=== PATIENT | female | born 1950 | race African-American/Black ===

== ENCOUNTER 2017-04-15 12:13 | Emergency (ER) | payer MEDICARE, MEDICAID ==
[~2017-04-15] VITALS: Ht 188 cm; Wt 130.0 kg
[~2017-04-15 12:13] MED LIST: DULO30CA2 PO; DULO60CA44 PO; INSU100I7 SQ; METF10002 PO; SIMV40TA5 PO
[2017-04-15] MEDS ORDERED: NEBI5TAB3 PO (12:32)
[2017-04-15] MEDS ORDERED: INSU100V3 SUBCUT (12:32)
[2017-04-15] MEDS ORDERED: ASPI-1159 PO (12:32)
[2017-04-15] MEDS ORDERED: INSU100I28 SQ (12:32)
[2017-04-15] MEDS ORDERED: FURO20TA4 PO (12:32)
[2017-04-15] MEDS ORDERED: APIX2.5T PO (12:32)
[2017-04-15 15:40] LABS: BASOPHILS % 0.7 % (0.0-2.0); EOSINOPHILS % 2.5 % (0.0-5.0); HEMATOCRIT. 36.1 % (36.0-48.0); LYMPHOCYTES % 25.2 % (20.0-50.0); MEAN CORPUSCULAR HEMOGLOBIN 26.5 pg (28.0-32.0); MEAN CORPUSCULAR VOLUME 87.1 fL (81.0-99.0); MEAN PLATELET VOLUME 7.8 fl (7.4-10.4); MONOCYTES % 7.3 % (2.0-8.0); NEUTROPHILS % 64.3 % (40.0-76.0); PLATELET 198 x1000/uL (130-400); RED BLOOD CELL COUNT 4.15 mill/uL (4.2-5.4); RED CELL DISTRIBUTION WIDTH 18.7 % (11.6-14.6)
[2017-04-15 15:42] LABS: INR 1.1; PROTHROMBIN TIME 11.7 sec (9.4-11.6)
[2017-04-15 15:48] LABS: CARBON DIOXIDE 29 mEq/L (21-32); CHLORIDE 106 mEq/L (98-107)
[2017-04-15 15:53] LABS: TROPONIN I 0.06 ng/mL (0.00-0.04)
[2017-04-15 16:29] LABS: CLARITY URINE CLOUDY (CLEAR); COLOR URINE YELLOW (YELLOW); GLUCOSE URINE TRACE (NEGATIVE); KETONES URINE NEGATIVE (NEGATIVE); LEUKOCYTE ESTERASE URINE NEGATIVE (NEGATIVE); NITRITE URINE NEGATIVE (NEGATIVE); OCCULT BLOOD URINE TRACE (NEGATIVE); PH URINE 7.5 (4.5-8.0); PROTEIN URINE 3+ (NEGATIVE); SPECIFIC GRAVITY URINE 1.014 (1.005-1.030)
[2017-04-15] MEDS ORDERED: MORPHINE SULFATE 4 MG/ML CPJ (NOT FOR IM USE) IV STA (19:28)
[2017-04-15] MEDS ORDERED: MAGNESIUM/ALUMINUM HYDROXIDE/SIMETHICONE 30ML UDC PO STA (19:28)
[2017-04-15] MEDS ORDERED: FAMOTIDINE 20MG/2ML VIAL IV STA (19:28)
[2017-04-15] MEDS ORDERED: MORPHINE SULFATE 2 MG/ML CPJ (NOT FOR IM USE) IV SCH (20:15)
[2017-04-15 22:14] VITALS: BP 144/67
== END 2017-04-15 22:17 | disposition home or self-care (01) ==
LOC: ER 12:13
DX: R10.31 Right lower quadrant pain (principal); K59.00 Constipation, unspecified; I11.0 Hypertensive heart disease with heart failure; I50.9 Heart failure, unspecified; I48.92 Unspecified atrial flutter; I44.39 Other atrioventricular block; E11.9 Type 2 diabetes mellitus without complications; E78.5 Hyperlipidemia, unspecified; I25.10 Atherosclerotic heart disease of native coronary artery without angina pectoris; J44.9 Chronic obstructive pulmonary disease, unspecified; Z95.5 Presence of coronary angioplasty implant and graft; Z79.4 Long term (current) use of insulin; Z79.82 Long term (current) use of aspirin; Z88.0 Allergy status to penicillin; Z87.891 Personal history of nicotine dependence; F10.21 Alcohol dependence, in remission
CPT/HCPCS: 36415; 74176; 80053; 81001; 83690; 84484; 85025; 85610; 93005; 96374; 96375; 99285; J2270; J3490

== ENCOUNTER 2017-06-26 19:13 | Inpatient (IN) | payer MEDICARE, MEDICAID ==
[~2017-06-26] VITALS: Ht 188 cm; Wt 131.2 kg
[~2017-06-26 19:13] MED LIST changes: +APIX2.5T PO; +ASPI-1159 PO; +ETOMIDATE 2MG/ML 10ML VIAL IV ONE; +FURO20TA4 PO; +INSU100I28 SQ; +INSU100V3 SUBCUT; +METF-416 PO; -METF10002 PO; +NEBI5TAB3 PO; +SUCCINYLCHOLINE CHLORIDE 200MG/10ML IV ONE
[2017-06-26] MEDS ORDERED: IPRATROPIUM BROMIDE (0.02%) 0.5MG/2.5ML NEB HHN STA (19:16)
[2017-06-26] MEDS ORDERED: METHYLPREDNISOLONE SOD SUCC 125 MG/2 ML VIAL IV STA (19:16)
[2017-06-26] MEDS ORDERED: LEVOFLOXACIN 750MG PREMIX 150 ML IV STA (19:16)
[2017-06-26] MEDS ORDERED: ALBUTEROL (0.083%) 2.5MG/3ML NEB HHN STA (19:16)
[2017-06-26 19:55] LABS: HEMATOCRIT. 30.5 % (36.0-48.0); HEMOGLOBIN. 9.3 g/dL (12.0-16.0); INR 1.5; MEAN CORPUSCULAR HEMOGLOBIN 23.9 pg (28.0-32.0); MEAN CORPUSCULAR VOLUME 78.5 fL (81.0-99.0); MEAN PLATELET VOLUME 7.7 fl (7.4-10.4); PLATELET 388 x1000/uL (130-400); PROTHROMBIN TIME 15.6 sec (9.4-11.6); RED BLOOD CELL COUNT 3.88 mill/uL (4.2-5.4); RED CELL DISTRIBUTION WIDTH 20.2 % (11.6-14.6)
[2017-06-26 19:56] LABS: CHLORIDE 101 mEq/L (98-107)
[2017-06-26 20:47] LABS: ATYPICAL LYMPHOCYTES 2; NUCLEATED RED BLOOD CELLS 8 /100 WBC; PLATELET ESTIMATE NORMAL
[2017-06-26] MEDS ORDERED: DILTIAZEM HCL 125 MG in DEXT 5% WATER 100 ML IV ONE (21:00)
[2017-06-26] MEDS ORDERED: DILTIAZEM HCL 5MG/ML 5ML VIAL IV ONE (21:00)
[2017-06-26] MEDS ORDERED: FUROSEMIDE 100MG/10ML VIAL IVP ONE (21:45)
[2017-06-26] MEDS ORDERED: DILTIAZEM HCL 125 MG in DEXT 5% WATER 100 ML IV NR (21:45)
[2017-06-26] MEDS ORDERED: ONDANSETRON HCL 4MG/2ML INJ IV ONE (22:00)
[2017-06-26] MEDS ORDERED: MORPHINE SULFATE 4 MG/ML CPJ (NOT FOR IM USE) IV ONE (22:00)
[2017-06-26] MEDS ORDERED: INSULIN REGULAR (HUMULIN R) 300UNITS/3ML IV ONE (22:15)
[2017-06-26] MEDS ORDERED: ASPIRIN 325MG TABLET PO ONE (22:15)
[2017-06-26] MEDS ORDERED: SODIUM BICARBONATE 8.4% 1 MEQ/ML 50ML SYR IV ONE (22:15)
[2017-06-26] MEDS ORDERED: ALBUTEROL (0.083%) 2.5MG/3ML NEB HHN ONE (22:15)
[2017-06-26] MEDS ORDERED: CALCIUM CHLORIDE 1GM/10ML SYR IV ONE (22:15)
[2017-06-26] MEDS ORDERED: DEXTROSE 50% WATER 50ML SYRINGE IV ONE (22:15)
[2017-06-26] MEDS ORDERED: CLONIDINE 0.1MG TABLET PO PRN (22:30)
[2017-06-26] MEDS ORDERED: ONDANSETRON HCL 4MG/2ML INJ IV PRN (22:30)
[2017-06-26] MEDS ORDERED: LORAZEPAM 2MG/ML CPJ IV PRN (22:30)
[2017-06-26] MEDS ORDERED: IPRATROPIUM/ALBUTEROL 0.5-3(2.5)MG/3ML NEB INH PRN (22:30)
[2017-06-26] MEDS ORDERED: LEVOFLOXACIN 500MG PREMIX 100 ML IV SCH (22:30)
[2017-06-26] MEDS ORDERED: MAGNESIUM/ALUMINUM HYDROXIDE/SIMETHICONE 30ML UDC PO PRN (22:30)
[2017-06-26] MEDS ORDERED: ENOXAPARIN 40MG/0.4ML SYR SUBCUT SCH (22:30)
[2017-06-27] VITALS (41 sets, daily range): BP systolic 86–152; BP diastolic 45–85
[2017-06-27] MEDS ORDERED: DILTIAZEM HCL 125 MG in DEXT 5% WATER 100 ML IV PRN (05:00)
[2017-06-27] MEDS ORDERED: LIDOCAINE HCL/PF 1% 2ML VIAL ONE ×2 (05:00→15:00)
[2017-06-27] MEDS ORDERED: DEXTROSE 50% WATER 50ML SYRINGE IV PRN (06:00)
[2017-06-27] MEDS: INSULIN LISPRO 100 UNITS/ML SUBCUT SCH ×3 (06:46→16:39)
[2017-06-27] MEDS: METHYLPREDNISOLONE SOD SUCC 125 MG/2 ML VIAL IV SCH ×3 (06:49→21:39)
[2017-06-27] MEDS: BLOOD SUGAR DIAGNOSTIC STRIP TEST SCH ×4 (06:49→18:48)
[2017-06-27 07:18] LABS: BG BASE EXCESS -10.6 mmol/L (-2.0-2.0); BG CARBOXYHEMOGLOBIN 0.6 % (0.5-1.5); BG DEOXYHEMOGLOBIN 7.5 % (0.0-5.0); BG FRACTION INSPIRED OXYGEN 32; BG HCO3 ACT 16.9 mmol/L (22.0-26.0); BG METHEMOGLOBIN 0.4 % (0.0-1.5); BG OXYGEN SATURATION 92.4 % (92.0-98.5); BG OXYHEMOGLOBIN 91.5 % (94.0-97.0); BG PH 7.193 (7.350-7.450); BG PO2 76.4 mmHg (75.0-100.0); BG SAMPLE SITE RIGHT BRACHIAL; BG TOTAL HEMOGLOBIN 9.2 g/dL (12.0-18.0); BG VENT MODE NASAL CANNULA
[2017-06-27 07:24] LABS: CREATINE KINASE MB FRACTION 5.8 ng/mL (0.5-3.6)
[2017-06-27] MEDS ORDERED: SODIUM BICARBONATE 8.4% 1 MEQ/ML 50ML SYR IV NR (08:19)
[2017-06-27 08:32] LABS: HEMATOCRIT. 27.1 % (36.0-48.0); MEAN CORPUSCULAR HEMOGLOBIN 23.7 pg (28.0-32.0); MEAN CORPUSCULAR VOLUME 80.2 fL (81.0-99.0); MEAN PLATELET VOLUME 7.9 fl (7.4-10.4); PLATELET 321 x1000/uL (130-400); RED BLOOD CELL COUNT 3.38 mill/uL (4.2-5.4)
[2017-06-27 08:37] LABS: CHLORIDE 99 mEq/L (98-107)
[2017-06-27 08:45] LABS: PHOSPHORUS 6.8 mg/dL (2.5-4.9)
[2017-06-27] MEDS ORDERED: ENOXAPARIN 30MG/0.3ML SYR SUBCUT SCH (09:00)
[2017-06-27] MEDS ORDERED: IPRATROPIUM/ALBUTEROL 0.5-3(2.5)MG/3ML NEB HHN PRN (09:45)
[2017-06-27] MEDS ORDERED: SODIUM POLYSTYRENE SULFONATE 15 G/60 ML BOT PO NR (10:00)
[2017-06-27] MEDS: HYDROMORPHONE HCL/PF 2MG/ML CPJ IV PRN ×2 (10:21→14:26)
[2017-06-27] MEDS ORDERED: DILTIAZEM HCL 125 MG in DEXT 5% WATER 100 ML IV SCH (11:30)
[2017-06-27] MEDS: INSULIN GLARGINE UD 100 UNITS/ML SYR SUBCUT SCH ×2 (11:57→21:44)
[2017-06-27 12:08] LABS: NUCLEATED RED BLOOD CELLS 2 /100 WBC
[2017-06-27 12:09] LABS: PLATELET ESTIMATE NORMAL
[2017-06-27] MEDS: BUDESONIDE 0.5MG/2ML NEB HHN SCH ×2 (12:27→20:21)
[2017-06-27] MEDS: IPRATROPIUM/ALBUTEROL 0.5-3(2.5)MG/3ML NEB HHN SCH ×4 (12:27→23:56)
[2017-06-27 12:30] LABS: CLARITY URINE CLOUDY (CLEAR); COLOR URINE DARK YELLOW (YELLOW); KETONES URINE TRACE (NEGATIVE); LEUKOCYTE ESTERASE URINE NEGATIVE (NEGATIVE); NITRITE URINE NEGATIVE (NEGATIVE); OCCULT BLOOD URINE 3+ (NEGATIVE); PROTEIN URINE 3+ (NEGATIVE); SPECIFIC GRAVITY URINE 1.022 (1.005-1.030)
[2017-06-27 13:01] LABS: *AMPHETAMINES SCREEN URINE NEGATIVE (NEGATIVE); *BARBITURATES SCREEN URINE NEGATIVE (NEGATIVE); *BENZODIAZEPINES SCREEN URINE NEGATIVE (NEGATIVE); *COCAINE SCREEN URINE NEGATIVE (NEGATIVE); CANNABINOID URINE SCREEN NEGATIVE (NEGATIVE); METHADONE URINE SCREEN NEGATIVE (NEGATIVE); OPIATES URINE SCREEN PRESUMTIVE POSITIVE (NEGATIVE); PHENCYCLIDINE URINE SCREEN NEGATIVE (NEGATIVE)
[2017-06-27 16:12] LABS: BG BASE EXCESS -8.7 mmol/L (-2.0-2.0); BG BILEVEL POS AIRWAY PRESSURE 15/5; BG CARBOXYHEMOGLOBIN 0.2 % (0.5-1.5); BG DEOXYHEMOGLOBIN 4.4 % (0.0-5.0); BG HCO3 ACT 19.8 mmol/L (22.0-26.0); BG METHEMOGLOBIN 0.2 % (0.0-1.5); BG OXYGEN SATURATION 95.6 % (92.0-98.5); BG OXYHEMOGLOBIN 95.2 % (94.0-97.0); BG PCO2 55.4 mmHg (35.0-45.0); BG SAMPLE SITE RIGHT BRACHIAL; BG TOTAL HEMOGLOBIN 9.9 g/dL (12.0-18.0); BG VENT MODE MASK - BIPAP; BG VENT RATE 16 set
[2017-06-27] MEDS ORDERED: NOREPINEPHRINE 16 MG in DEXT 5% WATER 234 ML IV PRN (16:30)
[2017-06-27] MEDS ORDERED: NALOXONE HCL 0.4 MG/ML 1ML VIAL IV NR (17:00)
[2017-06-27 17:54] LABS: CREATINE KINASE MB FRACTION 8.3 ng/mL (0.5-3.6)
[2017-06-27] MEDS ORDERED: SODIUM CHLORIDE 0.9% 500 ML IV NR (18:45)
[2017-06-27] MEDS ORDERED: INSULIN REGULAR (HUMULIN R) 300UNITS/3ML SUBCUT NR (19:00)
[2017-06-27 19:26] LABS: BG BILEVEL POS AIRWAY PRESSURE 15/5; BG CARBOXYHEMOGLOBIN 0.2 % (0.5-1.5); BG DEOXYHEMOGLOBIN 1.5 % (0.0-5.0); BG FRACTION INSPIRED OXYGEN 50; BG HCO3 ACT 23.1 mmol/L (22.0-26.0); BG METHEMOGLOBIN 0.5 % (0.0-1.5); BG OXYGEN SATURATION 98.5 % (92.0-98.5); BG OXYHEMOGLOBIN 97.8 % (94.0-97.0); BG PCO2 59.8 mmHg (35.0-45.0); BG PH 7.205 (7.350-7.450); BG PO2 139.5 mmHg (75.0-100.0); BG SAMPLE SITE LEFT RADIAL; BG TOTAL HEMOGLOBIN 9.3 g/dL (12.0-18.0); BG VENT MODE MASK - BIPAP; BG VENT RATE 18 set
[2017-06-27] MEDS: LEVOFLOXACIN 250MG PREMIX 50 ML IV SCH (21:31)
[2017-06-27] MEDS: PROPOFOL 10MG/ML 100ML 100 ML IV PRN (22:17)
[2017-06-27 22:25] LABS: BG BASE EXCESS -3.9 mmol/L (-2.0-2.0); BG CARBOXYHEMOGLOBIN 0.1 % (0.5-1.5); BG DEOXYHEMOGLOBIN 0.8 % (0.0-5.0); BG FRACTION INSPIRED OXYGEN 60; BG HCO3 ACT 22.5 mmol/L (22.0-26.0); BG METHEMOGLOBIN 0.1 % (0.0-1.5); BG OXYGEN SATURATION 99.2 % (92.0-98.5); BG PCO2 47.2 mmHg (35.0-45.0); BG PH 7.296 (7.350-7.450); BG PO2 155.2 mmHg (75.0-100.0); BG SAMPLE SITE LEFT RADIAL; BG TIDAL VOLUME(mL) 550 mL; BG TOTAL HEMOGLOBIN 9.4 g/dL (12.0-18.0); BG VENT MODE VENT - A/C; BG VENT RATE 16 set
[2017-06-28] VITALS (72 sets, daily range): BP systolic 87–133; BP diastolic 49–96
[2017-06-28] MEDS: INSULIN LISPRO 100 UNITS/ML SUBCUT SCH ×4 (00:36→23:45)
[2017-06-28] MEDS: IPRATROPIUM/ALBUTEROL 0.5-3(2.5)MG/3ML NEB HHN SCH ×5 (02:58→19:59)
[2017-06-28] MEDS: PROPOFOL 10MG/ML 100ML 100 ML IV PRN ×4 (05:15→21:40)
[2017-06-28] MEDS: METHYLPREDNISOLONE SOD SUCC 125 MG/2 ML VIAL IV SCH (05:18)
[2017-06-28] MEDS: BLOOD SUGAR DIAGNOSTIC STRIP TEST SCH ×4 (05:31→23:49)
[2017-06-28 05:38] LABS: HEMATOCRIT. 28.5 % (36.0-48.0); HEMOGLOBIN. 8.4 g/dL (12.0-16.0); MEAN CORPUSCULAR VOLUME 78.1 fL (81.0-99.0); PLATELET 348 x1000/uL (130-400); RED BLOOD CELL COUNT 3.65 mill/uL (4.2-5.4); RED CELL DISTRIBUTION WIDTH 20.4 % (11.6-14.6)
[2017-06-28] MEDS: BUDESONIDE 0.5MG/2ML NEB HHN SCH ×2 (08:20→19:59)
[2017-06-28 08:44] LABS: BG BASE EXCESS -3.9 mmol/L (-2.0-2.0); BG CARBOXYHEMOGLOBIN 0.3 % (0.5-1.5); BG DEOXYHEMOGLOBIN 3.1 % (0.0-5.0); BG FRACTION INSPIRED OXYGEN 60; BG METHEMOGLOBIN 0.1 % (0.0-1.5); BG OXYGEN SATURATION 96.9 % (92.0-98.5); BG OXYHEMOGLOBIN 96.5 % (94.0-97.0); BG PCO2 43.8 mmHg (35.0-45.0); BG PH 7.319 (7.350-7.450); BG PO2 95.5 mmHg (75.0-100.0); BG SAMPLE SITE RIGHT BRACHIAL; BG TIDAL VOLUME(mL) 550 mL; BG TOTAL HEMOGLOBIN 9.9 g/dL (12.0-18.0); BG VENT MODE VENT - A/C; BG VENT RATE 16 set
[2017-06-28] MEDS: FUROSEMIDE 40MG/4ML VIAL IVP SCH (10:01)
[2017-06-28] MEDS: PANTOPRAZOLE SODIUM 40 MG/VIAL IV SCH (10:01)
[2017-06-28] MEDS: INSULIN GLARGINE UD 100 UNITS/ML SYR SUBCUT SCH ×2 (11:08→21:53)
[2017-06-28 11:37] LABS: PLATELET ESTIMATE NORMAL
[2017-06-28] MEDS ORDERED: FUROSEMIDE 40MG/4ML VIAL IVP SCH (13:00)
[2017-06-28] MEDS ORDERED: LIDOCAINE HCL 1% 20ML VIAL (Pyxis) INJ ONE (13:18)
[2017-06-28] MEDS: METHYLPREDNISOLONE SOD SUCC 40 MG/ML VIAL IV SCH ×2 (13:18→21:35)
[2017-06-28] MEDS ORDERED: ENOXAPARIN 100MG/ML SYR SUBCUT NR (13:43)
[2017-06-28] MEDS ORDERED: SODIUM POLYSTYRENE SULFONATE 15 G/60 ML BOT PO NR (13:45)
[2017-06-28] MEDS: LEVOFLOXACIN 250MG PREMIX 50 ML IV SCH (20:09)
[2017-06-29] VITALS (83 sets, daily range): BP systolic 103–156; BP diastolic 44–100
[2017-06-29] MEDS: IPRATROPIUM/ALBUTEROL 0.5-3(2.5)MG/3ML NEB HHN SCH ×6 (00:04→20:00)
[2017-06-29] MEDS: DILTIAZEM HCL 125 MG in DEXT 5% WATER 100 ML IV PRN ×2 (02:23→12:06)
[2017-06-29] MEDS: PROPOFOL 10MG/ML 100ML 100 ML IV PRN ×2 (02:31→06:37)
[2017-06-29 06:13] LABS: HEMATOCRIT. 29.7 % (36.0-48.0); HEMOGLOBIN. 9.1 g/dL (12.0-16.0); MEAN CORPUSCULAR HEMOGLOBIN 23.6 pg (28.0-32.0); MEAN CORPUSCULAR VOLUME 77.3 fL (81.0-99.0); PLATELET 398 x1000/uL (130-400); RED BLOOD CELL COUNT 3.85 mill/uL (4.2-5.4); RED CELL DISTRIBUTION WIDTH 20.5 % (11.6-14.6)
[2017-06-29] MEDS: BLOOD SUGAR DIAGNOSTIC STRIP TEST SCH ×4 (06:14→23:58)
[2017-06-29] MEDS: METHYLPREDNISOLONE SOD SUCC 40 MG/ML VIAL IV SCH ×3 (06:18→21:00)
[2017-06-29] MEDS: INSULIN LISPRO 100 UNITS/ML SUBCUT SCH ×3 (06:28→17:46)
[2017-06-29] MEDS ORDERED: INSULIN LISPRO 100 UNITS/ML SUBCUT SCH (06:45)
[2017-06-29 07:59] LABS: BG BASE EXCESS 0.1 mmol/L (-2.0-2.0); BG CARBOXYHEMOGLOBIN 0.1 % (0.5-1.5); BG DEOXYHEMOGLOBIN 6.3 % (0.0-5.0); BG FRACTION INSPIRED OXYGEN 40; BG HCO3 ACT 26.1 mmol/L (22.0-26.0); BG METHEMOGLOBIN 0.3 % (0.0-1.5); BG OXYGEN SATURATION 93.7 % (92.0-98.5); BG OXYHEMOGLOBIN 93.3 % (94.0-97.0); BG PCO2 48.7 mmHg (35.0-45.0); BG PH 7.347 (7.350-7.450); BG SAMPLE SITE RIGHT RADIAL; BG TIDAL VOLUME(mL) 550 mL; BG TOTAL HEMOGLOBIN 10.2 g/dL (12.0-18.0); BG VENT MODE VENT - A/C; BG VENT RATE 16 set
[2017-06-29] MEDS: BUDESONIDE 0.5MG/2ML NEB HHN SCH ×2 (08:11→20:00)
[2017-06-29] MEDS: FUROSEMIDE 40MG/4ML VIAL IVP SCH (08:50)
[2017-06-29] MEDS: PANTOPRAZOLE SODIUM 40 MG/VIAL IV SCH (08:50)
[2017-06-29] MEDS: INSULIN GLARGINE UD 100 UNITS/ML SYR SUBCUT SCH ×2 (09:27→21:04)
[2017-06-29] MEDS: LORAZEPAM 2MG/ML CPJ IM PRN ×4 (09:35→23:59)
[2017-06-29 09:54] LABS: PHOSPHORUS 5.1 mg/dL (2.5-4.9)
[2017-06-29] MEDS: DILTIAZEM HCL 60MG TABLET PO SCH ×2 (10:53→17:45)
[2017-06-29 11:00] LABS: NUCLEATED RED BLOOD CELLS 4 /100 WBC
[2017-06-29 11:01] LABS: PLATELET ESTIMATE NORMAL
[2017-06-29] MEDS ORDERED: PHENYLEPHRINE 40 MG in DEXT 5% WATER 246 ML IV PRN (13:45)
[2017-06-29] MEDS ORDERED: VANCOMYCIN 2,000 MG in DEXT 5% WATER 500 ML IV SCH (16:00)
[2017-06-30] VITALS (82 sets, daily range): BP systolic 109–165; BP diastolic 51–109
[2017-06-30] MEDS: DILTIAZEM HCL 60MG TABLET PO SCH ×4 (00:02→17:47)
[2017-06-30] MEDS: IPRATROPIUM/ALBUTEROL 0.5-3(2.5)MG/3ML NEB HHN SCH ×6 (00:22→20:19)
[2017-06-30] MEDS: LORAZEPAM 2MG/ML CPJ IM PRN ×4 (03:54→18:51)
[2017-06-30 05:46] LABS: HEMATOCRIT 30.3 % (36.0-48.0); HEMOGLOBIN 9.3 g/dL (12.0-16.0); MEAN CORPUSCULAR HEMOGLOBIN 23.4 pg (28.0-32.0); MEAN CORPUSCULAR VOLUME 76.1 fL (81.0-99.0); PLATELET 420 x1000/uL (130-400); RED BLOOD CELL COUNT 3.97 mill/uL (4.2-5.4)
[2017-06-30] MEDS: BLOOD SUGAR DIAGNOSTIC STRIP TEST SCH ×3 (06:11→17:39)
[2017-06-30] MEDS: METHYLPREDNISOLONE SOD SUCC 40 MG/ML VIAL IV SCH ×3 (06:22→23:05)
[2017-06-30] MEDS: INSULIN LISPRO 100 UNITS/ML SUBCUT SCH ×6 (06:40→17:48)
[2017-06-30] MEDS: PANTOPRAZOLE SODIUM 40 MG/VIAL IV SCH (08:16)
[2017-06-30] MEDS: FUROSEMIDE 40MG/4ML VIAL IVP SCH (08:16)
[2017-06-30] MEDS: INSULIN GLARGINE UD 100 UNITS/ML SYR SUBCUT SCH ×2 (11:20→23:26)
[2017-06-30] MEDS: DILTIAZEM HCL 125 MG in DEXT 5% WATER 100 ML IV PRN (11:31)
[2017-06-30 11:33] LABS: BG BASE EXCESS 3.9 mmol/L (-2.0-2.0); BG CARBOXYHEMOGLOBIN 0.3 % (0.5-1.5); BG DEOXYHEMOGLOBIN 4.7 % (0.0-5.0); BG FRACTION INSPIRED OXYGEN 40; BG HCO3 ACT 29.5 mmol/L (22.0-26.0); BG METHEMOGLOBIN 0.3 % (0.0-1.5); BG OXYGEN SATURATION 95.3 % (92.0-98.5); BG OXYHEMOGLOBIN 94.7 % (94.0-97.0); BG PCO2 49.1 mmHg (35.0-45.0); BG PH 7.396 (7.350-7.450); BG PO2 82.5 mmHg (75.0-100.0); BG SAMPLE SITE RIGHT BRACHIAL; BG TIDAL VOLUME(mL) 550 mL; BG TOTAL HEMOGLOBIN 10.5 g/dL (12.0-18.0); BG VENT MODE VENT - A/C; BG VENT RATE 16 set
[2017-06-30] MEDS: MORPHINE SULFATE 4 MG/ML CPJ (NOT FOR IM USE) IV PRN (12:00)
[2017-06-30] MEDS ORDERED: VANCOMYCIN 1 G PREMIX 200 ML IV NR (13:00)
[2017-07-01] VITALS (92 sets, daily range): BP systolic 93–176; BP diastolic 49–120
[2017-07-01] MEDS: IPRATROPIUM/ALBUTEROL 0.5-3(2.5)MG/3ML NEB HHN SCH ×6 (00:38→20:40)
[2017-07-01] MEDS: DILTIAZEM HCL 60MG TABLET PO SCH ×2 (01:01→07:18)
[2017-07-01] MEDS: INSULIN LISPRO 100 UNITS/ML SUBCUT SCH ×6 (01:04→18:33)
[2017-07-01] MEDS: DILTIAZEM HCL 125 MG in DEXT 5% WATER 100 ML IV PRN ×2 (03:04→16:14)
[2017-07-01] MEDS: LORAZEPAM 2MG/ML CPJ IM PRN ×3 (03:09→17:46)
[2017-07-01] MEDS: MORPHINE SULFATE 4 MG/ML CPJ (NOT FOR IM USE) IV PRN ×2 (03:41→17:02)
[2017-07-01 04:48] LABS: HEMATOCRIT 30.9 % (36.0-48.0); HEMOGLOBIN 9.4 g/dL (12.0-16.0); MEAN CORPUSCULAR HEMOGLOBIN 23.1 pg (28.0-32.0); MEAN CORPUSCULAR VOLUME 76.3 fL (81.0-99.0); PLATELET 416 x1000/uL (130-400); RED BLOOD CELL COUNT 4.04 mill/uL (4.2-5.4); RED CELL DISTRIBUTION WIDTH 20.2 % (11.6-14.6)
[2017-07-01] MEDS: BLOOD SUGAR DIAGNOSTIC STRIP TEST SCH ×4 (06:00→18:26)
[2017-07-01] MEDS: METHYLPREDNISOLONE SOD SUCC 40 MG/ML VIAL IV SCH (07:19)
[2017-07-01 08:49] LABS: BG BASE EXCESS 6.2 mmol/L (-2.0-2.0); BG CARBOXYHEMOGLOBIN 0.3 % (0.5-1.5); BG DEOXYHEMOGLOBIN 6.7 % (0.0-5.0); BG FRACTION INSPIRED OXYGEN 40; BG HCO3 ACT 31.5 mmol/L (22.0-26.0); BG OXYGEN SATURATION 93.3 % (92.0-98.5); BG PCO2 49.5 mmHg (35.0-45.0); BG PH 7.422 (7.350-7.450); BG PO2 66.9 mmHg (75.0-100.0); BG SAMPLE SITE RIGHT BRACHIAL; BG TIDAL VOLUME(mL) 550 mL; BG TOTAL HEMOGLOBIN 10.7 g/dL (12.0-18.0); BG VENT MODE VENT - A/C; BG VENT RATE 16 set
[2017-07-01] MEDS: PANTOPRAZOLE SODIUM 40 MG/VIAL IV SCH (09:25)
[2017-07-01] MEDS: FUROSEMIDE 40MG/4ML VIAL IVP SCH ×2 (09:25→18:40)
[2017-07-01] MEDS ORDERED: FUROSEMIDE 40MG/4ML VIAL IVP ONE (11:15)
[2017-07-01] MEDS: ASPIRIN 81MG TABLET NG SCH (11:42)
[2017-07-01] MEDS: DILTIAZEM HCL 90MG TABLET PO SCH ×2 (11:42→18:31)
[2017-07-01] MEDS: INSULIN GLARGINE UD 100 UNITS/ML SYR SUBCUT SCH ×2 (11:44→22:46)
[2017-07-01] MEDS ORDERED: VANCOMYCIN 1 G PREMIX 200 ML IV SCH (12:00)
[2017-07-01] MEDS: BUDESONIDE 0.5MG/2ML NEB HHN SCH ×2 (12:10→20:40)
[2017-07-01] MEDS ORDERED: DIATR MEGLU/DIATRIZOATE SOLN 30ML PO NR (14:30)
[2017-07-01] MEDS: DIPHENHYDRAMINE 50MG/ML VIAL IV PRN (15:07)
[2017-07-01] MEDS: ENOXAPARIN 80MG/0.8ML SYR SUBCUT SCH (15:25)
[2017-07-01] MEDS: LACTULOSE 20G/30ML UDC PO PRN (22:47)
[2017-07-02] VITALS (84 sets, daily range): BP systolic 102–174; BP diastolic 35–110
[2017-07-02] MEDS: IPRATROPIUM/ALBUTEROL 0.5-3(2.5)MG/3ML NEB HHN SCH ×7 (00:34→23:46)
[2017-07-02] MEDS: INSULIN LISPRO 100 UNITS/ML SUBCUT SCH ×8 (00:45→17:27)
[2017-07-02] MEDS: DILTIAZEM HCL 90MG TABLET PO SCH ×5 (00:46→23:03)
[2017-07-02] MEDS: DIPHENHYDRAMINE 50MG/ML VIAL IV PRN (01:47)
[2017-07-02] MEDS: ACETAMINOPHEN 650MG/20.3ML UDC GT PRN (01:47)
[2017-07-02] MEDS: DILTIAZEM HCL 125 MG in DEXT 5% WATER 100 ML IV PRN (04:30)
[2017-07-02] MEDS: LORAZEPAM 2MG/ML CPJ IM PRN (04:48)
[2017-07-02 05:56] LABS: HEMATOCRIT. 31.5 % (36.0-48.0); HEMOGLOBIN. 9.6 g/dL (12.0-16.0); MEAN CORPUSCULAR HEMOGLOBIN 23.2 pg (28.0-32.0); MEAN CORPUSCULAR VOLUME 75.9 fL (81.0-99.0); MEAN PLATELET VOLUME 7.5 fl (7.4-10.4); PLATELET 437 x1000/uL (130-400); RED BLOOD CELL COUNT 4.15 mill/uL (4.2-5.4); RED CELL DISTRIBUTION WIDTH 20.6 % (11.6-14.6)
[2017-07-02] MEDS: BLOOD SUGAR DIAGNOSTIC STRIP TEST SCH ×5 (06:25→23:03)
[2017-07-02] MEDS: FUROSEMIDE 40MG/4ML VIAL IVP SCH ×2 (06:29→17:37)
[2017-07-02 07:21] LABS: BG BASE EXCESS 10.2 mmol/L (-2.0-2.0); BG CARBOXYHEMOGLOBIN 0.1 % (0.5-1.5); BG DEOXYHEMOGLOBIN 8.8 % (0.0-5.0); BG HCO3 ACT 35.3 mmol/L (22.0-26.0); BG METHEMOGLOBIN 0.2 % (0.0-1.5); BG OXYGEN SATURATION 91.2 % (92.0-98.5); BG OXYHEMOGLOBIN 90.9 % (94.0-97.0); BG PCO2 50.6 mmHg (35.0-45.0); BG PH 7.462 (7.350-7.450); BG PO2 62.1 mmHg (75.0-100.0); BG SAMPLE SITE RIGHT RADIAL; BG TIDAL VOLUME(mL) 550 mL; BG TOTAL HEMOGLOBIN 10.5 g/dL (12.0-18.0); BG VENT MODE VENT - A/C; BG VENT RATE 16 set
[2017-07-02] MEDS: BUDESONIDE 0.5MG/2ML NEB HHN SCH ×2 (08:00→20:12)
[2017-07-02] MEDS ORDERED: FUROSEMIDE 40MG/4ML VIAL IVP SCH (09:00)
[2017-07-02] MEDS: PANTOPRAZOLE SODIUM 40 MG/VIAL IV SCH (09:20)
[2017-07-02] MEDS: ASPIRIN 81MG TABLET NG SCH (09:20)
[2017-07-02] MEDS: ENOXAPARIN 80MG/0.8ML SYR SUBCUT SCH (09:21)
[2017-07-02] MEDS: MORPHINE SULFATE 4 MG/ML CPJ (NOT FOR IM USE) IV PRN ×2 (09:22→14:20)
[2017-07-02] MEDS ORDERED: RISPERIDONE 0.5MG TABLET PO SCH (10:00)
[2017-07-02 10:10] LABS: PLATELET ESTIMATE INCREASED
[2017-07-02] MEDS: LACTULOSE 20G/30ML UDC PO PRN (11:14)
[2017-07-02] MEDS: INSULIN GLARGINE UD 100 UNITS/ML SYR SUBCUT SCH ×2 (11:15→21:16)
[2017-07-02] MEDS: LORAZEPAM 2MG/ML CPJ IV PRN ×3 (12:05→21:14)
[2017-07-02] MEDS ORDERED: DILTIAZEM HCL 125 MG in DEXT 5% WATER 100 ML IV PRN (13:07)
[2017-07-02] MEDS: DILTIAZEM HCL 125 MG in DEXT 5% WATER 100 ML IV SCH (13:44)
[2017-07-02] MEDS: METRONIDAZOLE 500 MG PREMIX 100 ML IV SCH (17:37)
[2017-07-02] MEDS: RISPERIDONE 0.5MG TABLET PO SCH (17:37)
[2017-07-02] MEDS: AZTREONAM 1 G in DEXTROSE 5% WATER 50 ML IV SCH (17:37)
[2017-07-02] MEDS: METOCLOPRAMIDE 10MG/10 ML UDC NG SCH ×2 (17:37→23:02)
[2017-07-02] MEDS ORDERED: METOCLOPRAMIDE HCL 10MG/2ML VIAL IV SCH (18:00)
[2017-07-03] VITALS (29 sets, daily range): BP systolic 88–170; BP diastolic 49–98
[2017-07-03] MEDS: LORAZEPAM 2MG/ML CPJ IV PRN ×2 (01:49→10:09)
[2017-07-03] MEDS: METRONIDAZOLE 500 MG PREMIX 100 ML IV SCH ×3 (01:50→18:54)
[2017-07-03] MEDS: IPRATROPIUM/ALBUTEROL 0.5-3(2.5)MG/3ML NEB HHN SCH ×5 (03:06→20:20)
[2017-07-03] MEDS: MORPHINE SULFATE 4 MG/ML CPJ (NOT FOR IM USE) IV PRN (04:29)
[2017-07-03] MEDS: METOCLOPRAMIDE 10MG/10 ML UDC NG SCH ×3 (05:27→18:10)
[2017-07-03] MEDS: DILTIAZEM HCL 90MG TABLET PO SCH ×4 (05:27→22:37)
[2017-07-03] MEDS: BLOOD SUGAR DIAGNOSTIC STRIP TEST SCH ×3 (05:27→18:54)
[2017-07-03] MEDS: AZTREONAM 1 G in DEXTROSE 5% WATER 50 ML IV SCH ×2 (05:27→18:10)
[2017-07-03 05:59] LABS: BASOPHILS % 0.1 % (0.0-2.0); EOSINOPHILS % 0.2 % (0.0-5.0); HEMATOCRIT. 33.5 % (36.0-48.0); HEMOGLOBIN. 10.3 g/dL (12.0-16.0); LYMPHOCYTES % 10.6 % (20.0-50.0); MEAN CORPUSCULAR HEMOGLOBIN 23.4 pg (28.0-32.0); MEAN PLATELET VOLUME 7.5 fl (7.4-10.4); MONOCYTES % 8.3 % (2.0-8.0); NEUTROPHILS % 80.8 % (40.0-76.0); PLATELET 378 x1000/uL (130-400); RED BLOOD CELL COUNT 4.41 mill/uL (4.2-5.4); RED CELL DISTRIBUTION WIDTH 20.9 % (11.6-14.6)
[2017-07-03] MEDS: INSULIN LISPRO 100 UNITS/ML SUBCUT SCH ×8 (06:00→18:00)
[2017-07-03] MEDS: FUROSEMIDE 40MG/4ML VIAL IVP SCH ×2 (06:17→18:10)
[2017-07-03] MEDS: BUDESONIDE 0.5MG/2ML NEB HHN SCH ×2 (07:44→20:20)
[2017-07-03] MEDS: ASPIRIN 81MG TABLET NG SCH (08:39)
[2017-07-03] MEDS: PANTOPRAZOLE SODIUM 40 MG/VIAL IV SCH (08:39)
[2017-07-03] MEDS: DIPHENHYDRAMINE 50MG/ML VIAL IV PRN (08:39)
[2017-07-03] MEDS: RISPERIDONE 0.5MG TABLET PO SCH ×2 (08:39→18:10)
[2017-07-03] MEDS: ENOXAPARIN 80MG/0.8ML SYR SUBCUT SCH (08:40)
[2017-07-03] MEDS: INSULIN GLARGINE UD 100 UNITS/ML SYR SUBCUT SCH ×2 (10:41→22:00)
[2017-07-03] MEDS ORDERED: FUROSEMIDE 100MG/10ML VIAL IVP NR (13:00)
[2017-07-03] MEDS: DILTIAZEM HCL 125 MG in DEXT 5% WATER 100 ML IV SCH (13:15)
[2017-07-03] MEDS ORDERED: ACETAZOLAMIDE SODIUM 500MG/VIAL IV NR (14:00)
[2017-07-03] MEDS: VERAPAMIL HCL 2.5 MG/1 ML 2ML VIAL IV PRN ×2 (14:06→18:55)
[2017-07-03] MEDS: LACTULOSE 20G/30ML UDC PO PRN (18:09)
[2017-07-03] MEDS: ACETAMINOPHEN 650MG/20.3ML UDC GT PRN (22:37)
[2017-07-04] VITALS (37 sets, daily range): BP systolic 85–147; BP diastolic 46–101
[2017-07-04] MEDS: IPRATROPIUM/ALBUTEROL 0.5-3(2.5)MG/3ML NEB HHN SCH ×6 (00:17→20:47)
[2017-07-04] MEDS: METOCLOPRAMIDE 10MG/10 ML UDC NG SCH ×5 (00:32→23:19)
[2017-07-04] MEDS: METRONIDAZOLE 500 MG PREMIX 100 ML IV SCH ×3 (01:06→19:59)
[2017-07-04] MEDS: AZTREONAM 1 G in DEXTROSE 5% WATER 50 ML IV SCH ×2 (05:07→19:59)
[2017-07-04] MEDS: DILTIAZEM HCL 90MG TABLET PO SCH ×4 (05:07→23:19)
[2017-07-04] MEDS: BLOOD SUGAR DIAGNOSTIC STRIP TEST SCH ×5 (05:14→23:30)
[2017-07-04] MEDS: INSULIN LISPRO 100 UNITS/ML SUBCUT SCH ×10 (05:14→23:30)
[2017-07-04 05:53] LABS: BASOPHILS % 0.1 % (0.0-2.0); EOSINOPHILS % 1.6 % (0.0-5.0); HEMATOCRIT. 33.6 % (36.0-48.0); HEMOGLOBIN. 10.4 g/dL (12.0-16.0); LYMPHOCYTES % 19.6 % (20.0-50.0); MEAN CORPUSCULAR HEMOGLOBIN 23.6 pg (28.0-32.0); MEAN CORPUSCULAR VOLUME 76.3 fL (81.0-99.0); MEAN PLATELET VOLUME 7.7 fl (7.4-10.4); MONOCYTES % 8.7 % (2.0-8.0); PLATELET 342 x1000/uL (130-400); RED BLOOD CELL COUNT 4.41 mill/uL (4.2-5.4); RED CELL DISTRIBUTION WIDTH 21.1 % (11.6-14.6)
[2017-07-04] MEDS: FUROSEMIDE 40MG/4ML VIAL IVP SCH (09:00)
[2017-07-04] MEDS: PANTOPRAZOLE SODIUM 40 MG/VIAL IV SCH (09:00)
[2017-07-04] MEDS: RISPERIDONE 0.5MG TABLET PO SCH ×2 (09:00→19:59)
[2017-07-04] MEDS: ASPIRIN 81MG TABLET NG SCH (09:00)
[2017-07-04] MEDS: ENOXAPARIN 80MG/0.8ML SYR SUBCUT SCH (09:01)
[2017-07-04 09:14] LABS: BG BASE EXCESS 13.2 mmol/L (-2.0-2.0); BG CARBOXYHEMOGLOBIN 0.6 % (0.5-1.5); BG DEOXYHEMOGLOBIN 6.5 % (0.0-5.0); BG FRACTION INSPIRED OXYGEN 40; BG HCO3 ACT 39.3 mmol/L (22.0-26.0); BG METHEMOGLOBIN 0.4 % (0.0-1.5); BG OXYGEN SATURATION 93.4 % (92.0-98.5); BG OXYHEMOGLOBIN 92.5 % (94.0-97.0); BG PCO2 57.9 mmHg (35.0-45.0); BG PO2 74.4 mmHg (75.0-100.0); BG PRESSURE SUPPORT 8; BG SAMPLE SITE RIGHT RADIAL; BG TOTAL HEMOGLOBIN 11.7 g/dL (12.0-18.0); BG VENT MODE VENT - CPAP
[2017-07-04] MEDS ORDERED: VERAPAMIL HCL 2.5 MG/1 ML 2ML VIAL IV PRN (10:45)
[2017-07-04] MEDS ORDERED: RACEPINEPHRINE 2.25% 0.5ML NEB VIAL HHN PRN (11:00)
[2017-07-04 12:17] LABS: BG BASE EXCESS 12.6 mmol/L (-2.0-2.0); BG CARBOXYHEMOGLOBIN 0.7 % (0.5-1.5); BG DEOXYHEMOGLOBIN 4.9 % (0.0-5.0); BG FRACTION INSPIRED OXYGEN 40; BG HCO3 ACT 37.4 mmol/L (22.0-26.0); BG METHEMOGLOBIN 0.3 % (0.0-1.5); BG OXYGEN SATURATION 95.1 % (92.0-98.5); BG OXYHEMOGLOBIN 94.1 % (94.0-97.0); BG PCO2 48.9 mmHg (35.0-45.0); BG PH 7.502 (7.350-7.450); BG PO2 77.3 mmHg (75.0-100.0); BG SAMPLE SITE RIGHT RADIAL; BG TOTAL HEMOGLOBIN 12.2 g/dL (12.0-18.0); BG VENT MODE MASK - AEROSOL
[2017-07-04] MEDS: VERAPAMIL HCL 2.5 MG/1 ML 2ML VIAL IV PRN ×2 (12:45→20:05)
[2017-07-04] MEDS: INSULIN GLARGINE UD 100 UNITS/ML SYR SUBCUT SCH (13:00)
[2017-07-04 13:41] LABS: BG BASE EXCESS 12.3 mmol/L (-2.0-2.0); BG BILEVEL POS AIRWAY PRESSURE 15/5; BG CARBOXYHEMOGLOBIN 0.6 % (0.5-1.5); BG FRACTION INSPIRED OXYGEN 40; BG HCO3 ACT 37.6 mmol/L (22.0-26.0); BG METHEMOGLOBIN 0.2 % (0.0-1.5); BG OXYGEN SATURATION 92.9 % (92.0-98.5); BG OXYHEMOGLOBIN 92.2 % (94.0-97.0); BG PCO2 51.6 mmHg (35.0-45.0); BG PO2 69.5 mmHg (75.0-100.0); BG SAMPLE SITE RIGHT RADIAL; BG TOTAL HEMOGLOBIN 11.9 g/dL (12.0-18.0); BG VENT MODE MASK - BIPAP; BG VENT RATE 14 set
[2017-07-04 20:27] LABS: BG BASE EXCESS 9.6 mmol/L (-2.0-2.0); BG BILEVEL POS AIRWAY PRESSURE 15/5; BG CARBOXYHEMOGLOBIN 0.7 % (0.5-1.5); BG DEOXYHEMOGLOBIN 6.2 % (0.0-5.0); BG FRACTION INSPIRED OXYGEN 40; BG METHEMOGLOBIN 0.3 % (0.0-1.5); BG OXYGEN SATURATION 93.7 % (92.0-98.5); BG OXYHEMOGLOBIN 92.8 % (94.0-97.0); BG PCO2 45.2 mmHg (35.0-45.0); BG PH 7.494 (7.350-7.450); BG PO2 71.6 mmHg (75.0-100.0); BG SAMPLE SITE RIGHT RADIAL; BG TOTAL HEMOGLOBIN 11.9 g/dL (12.0-18.0); BG VENT MODE MASK - BIPAP
[2017-07-04] MEDS: BUDESONIDE 0.5MG/2ML NEB HHN SCH (20:47)
[2017-07-04] MEDS: ACETAMINOPHEN 650MG/20.3ML UDC GT PRN (23:31)
[2017-07-05] VITALS (34 sets, daily range): BP systolic 89–145; BP diastolic 45–96
[2017-07-05] MEDS: IPRATROPIUM/ALBUTEROL 0.5-3(2.5)MG/3ML NEB HHN SCH ×6 (00:05→20:43)
[2017-07-05] MEDS: METRONIDAZOLE 500 MG PREMIX 100 ML IV SCH ×3 (01:32→17:59)
[2017-07-05 05:39] LABS: BASOPHILS % 0.1 % (0.0-2.0); EOSINOPHILS % 2.6 % (0.0-5.0); HEMATOCRIT. 33.9 % (36.0-48.0); HEMOGLOBIN. 10.3 g/dL (12.0-16.0); LYMPHOCYTES % 17.4 % (20.0-50.0); MEAN CORPUSCULAR HEMOGLOBIN 23.3 pg (28.0-32.0); MEAN CORPUSCULAR VOLUME 76.9 fL (81.0-99.0); MEAN PLATELET VOLUME 7.8 fl (7.4-10.4); MONOCYTES % 8.7 % (2.0-8.0); NEUTROPHILS % 71.2 % (40.0-76.0); PLATELET 331 x1000/uL (130-400); RED BLOOD CELL COUNT 4.41 mill/uL (4.2-5.4)
[2017-07-05] MEDS: AZTREONAM 1 G in DEXTROSE 5% WATER 50 ML IV SCH ×2 (05:40→17:01)
[2017-07-05] MEDS: INSULIN LISPRO 100 UNITS/ML SUBCUT SCH ×5 (05:44→18:03)
[2017-07-05] MEDS: METOCLOPRAMIDE 10MG/10 ML UDC NG SCH ×3 (05:44→18:02)
[2017-07-05] MEDS: BLOOD SUGAR DIAGNOSTIC STRIP TEST SCH ×3 (05:45→17:59)
[2017-07-05] MEDS: DILTIAZEM HCL 90MG TABLET PO SCH ×3 (05:45→17:59)
[2017-07-05] MEDS ORDERED: FUROSEMIDE 40MG/4ML VIAL IVP SCH ×2 (07:00→17:00)
[2017-07-05] MEDS: ASPIRIN 81MG TABLET NG SCH (07:49)
[2017-07-05] MEDS: RISPERIDONE 0.5MG TABLET PO SCH ×2 (07:49→17:14)
[2017-07-05] MEDS: PANTOPRAZOLE SODIUM 40 MG/VIAL IV SCH (07:49)
[2017-07-05] MEDS: ENOXAPARIN 100MG/ML SYR SUBCUT SCH (07:50)
[2017-07-05 08:51] LABS: BG BASE EXCESS 12.3 mmol/L (-2.0-2.0); BG BILEVEL POS AIRWAY PRESSURE ST=15/5; BG CARBOXYHEMOGLOBIN 0.8 % (0.5-1.5); BG DEOXYHEMOGLOBIN 8.4 % (0.0-5.0); BG FRACTION INSPIRED OXYGEN 40; BG HCO3 ACT 37.9 mmol/L (22.0-26.0); BG METHEMOGLOBIN 0.2 % (0.0-1.5); BG OXYGEN SATURATION 91.5 % (92.0-98.5); BG OXYHEMOGLOBIN 90.6 % (94.0-97.0); BG PCO2 53.4 mmHg (35.0-45.0); BG PH 7.469 (7.350-7.450); BG PO2 64.5 mmHg (75.0-100.0); BG PRESSURE SUPPORT 10; BG SAMPLE SITE LEFT RADIAL; BG TOTAL HEMOGLOBIN 11.9 g/dL (12.0-18.0); BG VENT MODE MASK - BIPAP; BG VENT RATE 14 set
[2017-07-05] MEDS: BUDESONIDE 0.5MG/2ML NEB HHN SCH ×2 (08:54→12:00)
[2017-07-05] MEDS: HYDROCODONE/ACETAMINOPHEN 5/325MG TABLET PO PRN (13:09)
[2017-07-05] MEDS: VERAPAMIL HCL 2.5 MG/1 ML 2ML VIAL IV PRN (21:29)
[2017-07-06] VITALS (46 sets, daily range): BP systolic 89–143; BP diastolic 45–90
[2017-07-06] MEDS: BLOOD SUGAR DIAGNOSTIC STRIP TEST SCH ×5 (00:06→23:33)
[2017-07-06] MEDS: INSULIN LISPRO 100 UNITS/ML SUBCUT SCH ×5 (00:11→23:37)
[2017-07-06] MEDS: DILTIAZEM HCL 90MG TABLET PO SCH ×5 (00:12→23:38)
[2017-07-06] MEDS: METOCLOPRAMIDE 10MG/10 ML UDC NG SCH ×5 (00:12→23:36)
[2017-07-06] MEDS: IPRATROPIUM/ALBUTEROL 0.5-3(2.5)MG/3ML NEB HHN SCH ×6 (00:26→20:15)
[2017-07-06] MEDS: METRONIDAZOLE 500 MG PREMIX 100 ML IV SCH ×3 (02:29→18:36)
[2017-07-06 04:54] LABS: BASOPHILS % 0.6 % (0.0-2.0); EOSINOPHILS % 2.3 % (0.0-5.0); HEMATOCRIT. 39.1 % (36.0-48.0); HEMOGLOBIN. 11.7 g/dL (12.0-16.0); LYMPHOCYTES % 11.4 % (20.0-50.0); MEAN CORPUSCULAR HEMOGLOBIN 23.1 pg (28.0-32.0); MEAN CORPUSCULAR VOLUME 77.5 fL (81.0-99.0); MONOCYTES % 7.2 % (2.0-8.0); NEUTROPHILS % 78.5 % (40.0-76.0); PLATELET 361 x1000/uL (130-400); RED BLOOD CELL COUNT 5.05 mill/uL (4.2-5.4); RED CELL DISTRIBUTION WIDTH 21.4 % (11.6-14.6)
[2017-07-06] MEDS: AZTREONAM 1 G in DEXTROSE 5% WATER 50 ML IV SCH ×2 (06:43→18:22)
[2017-07-06] MEDS ORDERED: FUROSEMIDE 40MG/4ML VIAL IVP SCH (07:00)
[2017-07-06] MEDS: BUDESONIDE 0.5MG/2ML NEB HHN SCH ×2 (08:04→20:15)
[2017-07-06 08:23] LABS: BG BASE EXCESS 9.9 mmol/L (-2.0-2.0); BG BILEVEL POS AIRWAY PRESSURE 15/5; BG CARBOXYHEMOGLOBIN 0.7 % (0.5-1.5); BG DEOXYHEMOGLOBIN 9.8 % (0.0-5.0); BG FRACTION INSPIRED OXYGEN 40; BG HCO3 ACT 34.7 mmol/L (22.0-26.0); BG METHEMOGLOBIN 0.3 % (0.0-1.5); BG OXYGEN SATURATION 90.1 % (92.0-98.5); BG OXYHEMOGLOBIN 89.2 % (94.0-97.0); BG PCO2 47.4 mmHg (35.0-45.0); BG PH 7.482 (7.350-7.450); BG PO2 59.4 mmHg (75.0-100.0); BG SAMPLE SITE RIGHT RADIAL; BG TOTAL HEMOGLOBIN 12.2 g/dL (12.0-18.0); BG VENT MODE MASK - BIPAP; BG VENT RATE 14 set
[2017-07-06] MEDS: PANTOPRAZOLE SODIUM 40 MG/VIAL IV SCH (09:10)
[2017-07-06] MEDS: FUROSEMIDE 40MG/4ML VIAL IVP SCH ×2 (09:10→18:25)
[2017-07-06] MEDS: RISPERIDONE 0.5MG TABLET PO SCH ×2 (09:11→18:25)
[2017-07-06] MEDS: ASPIRIN 81MG TABLET NG SCH (09:11)
[2017-07-06] MEDS: ENOXAPARIN 100MG/ML SYR SUBCUT SCH (09:11)
[2017-07-06] MEDS: HYDROCODONE/ACETAMINOPHEN 5/325MG TABLET PO PRN (21:10)
[2017-07-07] VITALS (46 sets, daily range): BP systolic 90–138; BP diastolic 47–89
[2017-07-07] MEDS: IPRATROPIUM/ALBUTEROL 0.5-3(2.5)MG/3ML NEB HHN SCH ×6 (00:13→19:59)
[2017-07-07] MEDS: METRONIDAZOLE 500 MG PREMIX 100 ML IV SCH ×3 (02:46→18:49)
[2017-07-07] MEDS: METOCLOPRAMIDE 10MG/10 ML UDC NG SCH ×4 (05:14→23:17)
[2017-07-07] MEDS: DILTIAZEM HCL 90MG TABLET PO SCH ×4 (05:14→23:17)
[2017-07-07] MEDS: AZTREONAM 1 G in DEXTROSE 5% WATER 50 ML IV SCH ×2 (05:14→17:08)
[2017-07-07] MEDS: INSULIN LISPRO 100 UNITS/ML SUBCUT SCH ×4 (05:15→23:18)
[2017-07-07] MEDS: BLOOD SUGAR DIAGNOSTIC STRIP TEST SCH ×4 (05:15→23:19)
[2017-07-07] MEDS: FUROSEMIDE 40MG/4ML VIAL IVP SCH ×2 (06:47→17:06)
[2017-07-07] MEDS: BUDESONIDE 0.5MG/2ML NEB HHN SCH ×2 (07:37→19:58)
[2017-07-07] MEDS: RISPERIDONE 0.5MG TABLET PO SCH ×2 (08:23→18:49)
[2017-07-07] MEDS: PANTOPRAZOLE SODIUM 40 MG/VIAL IV SCH (08:23)
[2017-07-07] MEDS: ASPIRIN 81MG TABLET NG SCH (08:23)
[2017-07-07] MEDS: ENOXAPARIN 100MG/ML SYR SUBCUT SCH (08:24)
[2017-07-07 10:40] LABS: BG BASE EXCESS 11.6 mmol/L (-2.0-2.0); BG BILEVEL POS AIRWAY PRESSURE 15/5; BG CARBOXYHEMOGLOBIN 0.5 % (0.5-1.5); BG DEOXYHEMOGLOBIN 4.4 % (0.0-5.0); BG FRACTION INSPIRED OXYGEN 40; BG HCO3 ACT 37.3 mmol/L (22.0-26.0); BG METHEMOGLOBIN 0.3 % (0.0-1.5); BG OXYGEN SATURATION 95.6 % (92.0-98.5); BG OXYHEMOGLOBIN 94.8 % (94.0-97.0); BG PCO2 54.7 mmHg (35.0-45.0); BG PH 7.452 (7.350-7.450); BG PO2 81.8 mmHg (75.0-100.0); BG SAMPLE SITE RIGHT RADIAL; BG TOTAL HEMOGLOBIN 11.5 g/dL (12.0-18.0); BG VENT MODE MASK - BIPAP; BG VENT RATE 14 set
[2017-07-07 12:29] LABS: BASOPHILS % 0.7 % (0.0-2.0); EOSINOPHILS % 2.5 % (0.0-5.0); HEMATOCRIT. 34.9 % (36.0-48.0); HEMOGLOBIN. 10.3 g/dL (12.0-16.0); LYMPHOCYTES % 13.2 % (20.0-50.0); MEAN CORPUSCULAR HEMOGLOBIN 23.1 pg (28.0-32.0); MEAN CORPUSCULAR VOLUME 78.4 fL (81.0-99.0); MEAN PLATELET VOLUME 8.2 fl (7.4-10.4); NEUTROPHILS % 74.6 % (40.0-76.0); PLATELET 346 x1000/uL (130-400); RED BLOOD CELL COUNT 4.45 mill/uL (4.2-5.4); RED CELL DISTRIBUTION WIDTH 21.7 % (11.6-14.6)
[2017-07-07] MEDS: VERAPAMIL HCL 2.5 MG/1 ML 2ML VIAL IV PRN (21:08)
[2017-07-08] VITALS (94 sets, daily range): BP systolic -13–140; BP diastolic -14–91
[2017-07-08] MEDS: IPRATROPIUM/ALBUTEROL 0.5-3(2.5)MG/3ML NEB HHN SCH ×6 (00:15→20:49)
[2017-07-08] MEDS: METRONIDAZOLE 500 MG PREMIX 100 ML IV SCH ×3 (01:02→19:02)
[2017-07-08] MEDS: HYDROCODONE/ACETAMINOPHEN 5/325MG TABLET PO PRN ×2 (02:44→06:39)
[2017-07-08] MEDS: VERAPAMIL HCL 2.5 MG/1 ML 2ML VIAL IV PRN ×3 (04:08→11:59)
[2017-07-08 05:22] LABS: BASOPHILS % 0.2 % (0.0-2.0); EOSINOPHILS % 1.7 % (0.0-5.0); HEMATOCRIT. 32.9 % (36.0-48.0); HEMOGLOBIN. 9.6 g/dL (12.0-16.0); LYMPHOCYTES % 12.8 % (20.0-50.0); MEAN CORPUSCULAR HEMOGLOBIN 22.9 pg (28.0-32.0); MEAN CORPUSCULAR VOLUME 78.7 fL (81.0-99.0); MEAN PLATELET VOLUME 8.6 fl (7.4-10.4); MONOCYTES % 8.6 % (2.0-8.0); NEUTROPHILS % 76.7 % (40.0-76.0); PLATELET 351 x1000/uL (130-400); RED BLOOD CELL COUNT 4.19 mill/uL (4.2-5.4); RED CELL DISTRIBUTION WIDTH 21.7 % (11.6-14.6)
[2017-07-08] MEDS: BLOOD SUGAR DIAGNOSTIC STRIP TEST SCH ×4 (06:00→23:40)
[2017-07-08] MEDS: METOCLOPRAMIDE 10MG/10 ML UDC NG SCH ×4 (06:01→23:30)
[2017-07-08] MEDS: AZTREONAM 1 G in DEXTROSE 5% WATER 50 ML IV SCH ×2 (06:01→20:32)
[2017-07-08] MEDS: DILTIAZEM HCL 90MG TABLET PO SCH ×4 (06:02→23:39)
[2017-07-08] MEDS: INSULIN LISPRO 100 UNITS/ML SUBCUT SCH ×4 (06:04→23:44)
[2017-07-08] MEDS: FUROSEMIDE 40MG/4ML VIAL IVP SCH (06:40)
[2017-07-08] MEDS: BUDESONIDE 0.5MG/2ML NEB HHN SCH ×2 (08:00→20:49)
[2017-07-08 08:17] LABS: BG BASE EXCESS 9.4 mmol/L (-2.0-2.0); BG CARBOXYHEMOGLOBIN 0.1 % (0.5-1.5); BG FRACTION INSPIRED OXYGEN 50; BG HCO3 ACT 34.3 mmol/L (22.0-26.0); BG METHEMOGLOBIN 0.2 % (0.0-1.5); BG OXYHEMOGLOBIN 95.7 % (94.0-97.0); BG PCO2 48.9 mmHg (35.0-45.0); BG PH 7.464 (7.350-7.450); BG PO2 85.1 mmHg (75.0-100.0); BG SAMPLE SITE RIGHT RADIAL; BG TOTAL HEMOGLOBIN 10.1 g/dL (12.0-18.0); BG VENT MODE MASK - VENTI
[2017-07-08] MEDS: RISPERIDONE 0.5MG TABLET PO SCH ×2 (08:56→16:12)
[2017-07-08] MEDS: ASPIRIN 81MG TABLET NG SCH (08:56)
[2017-07-08] MEDS: PANTOPRAZOLE SODIUM 40 MG/VIAL IV SCH (08:56)
[2017-07-08] MEDS: ENOXAPARIN 100MG/ML SYR SUBCUT SCH (08:57)
[2017-07-08] MEDS ORDERED: SPIRONOLACTONE 25MG TABLET PO SCH (09:00)
[2017-07-08] MEDS ORDERED: FUROSEMIDE 40MG/4ML VIAL IVP SCH ×2 (09:00→16:00)
[2017-07-08] MEDS: DIPHENHYDRAMINE 50MG/ML VIAL IV PRN (11:58)
[2017-07-08] MEDS ORDERED: SUCCINYLCHOLINE CHLORIDE 200MG/10ML IV ONE (12:06)
[2017-07-08] MEDS ORDERED: ETOMIDATE 2MG/ML 10ML VIAL IV ONE (12:06)
[2017-07-08] MEDS ORDERED: SODIUM CHLORIDE 0.9% 250 ML IV ONE (14:00)
[2017-07-08] MEDS ORDERED: SODIUM CHLORIDE 0.9% 500 ML IV ONE ×2 (14:00)
[2017-07-08] MEDS: ACETAMINOPHEN 650MG/20.3ML UDC GT PRN (14:30)
[2017-07-08] MEDS ORDERED: DIGOXIN 500MCG/2ML AMP IV NR (15:45)
[2017-07-08] MEDS ORDERED: PHENYLEPHRINE 20 MG in DEXT 5% WATER 498 ML IV PRN (15:45)
[2017-07-08] MEDS: PHENYLEPHRINE 40 MG in DEXT 5% WATER 246 ML IV PRN ×3 (16:42→23:31)
[2017-07-08] MEDS ORDERED: PROPOFOL 10MG/ML 100ML 100 ML IV PRN (17:00)
[2017-07-08] MEDS ORDERED: NOREPINEPHRINE 16 MG in DEXT 5% WATER 234 ML IV PRN (17:00)
[2017-07-08 17:42] LABS: BG BASE EXCESS -6.7 mmol/L (-2.0-2.0); BG CARBOXYHEMOGLOBIN 0.1 % (0.5-1.5); BG DEOXYHEMOGLOBIN 0.3 % (0.0-5.0); BG FRACTION INSPIRED OXYGEN 100; BG HCO3 ACT 18.5 mmol/L (22.0-26.0); BG METHEMOGLOBIN 0.5 % (0.0-1.5); BG OXYGEN SATURATION 99.7 % (92.0-98.5); BG OXYHEMOGLOBIN 99.1 % (94.0-97.0); BG PCO2 35.9 mmHg (35.0-45.0); BG PH 7.331 (7.350-7.450); BG PO2 318.5 mmHg (75.0-100.0); BG SAMPLE SITE A-LINE; BG TIDAL VOLUME(mL) 500 mL; BG TOTAL HEMOGLOBIN 8.3 g/dL (12.0-18.0); BG VENT MODE VENT - A/C; BG VENT RATE 28 set
[2017-07-08] MEDS ORDERED: FENTANYL CITRATE/PF 500 MCG in SODIUM CHLORIDE 0.9% 40 ML IV PRN (18:00)
[2017-07-08] MEDS ORDERED: DIGOXIN 500MCG/2ML AMP IV PRN (18:00)
[2017-07-08] MEDS ORDERED: SODIUM BICARBONATE 8.4% 1 MEQ/ML 50ML SYR IV NR ×2 (18:45→20:30)
[2017-07-08] MEDS: VASOPRESSIN 10 UNIT in SODIUM CHLORIDE 0.9% 99.5 ML IV PRN ×2 (18:48→21:40)
[2017-07-08 19:13] LABS: BASOPHILS % 0.4 % (0.0-2.0); EOSINOPHILS % 0.3 % (0.0-5.0); HEMATOCRIT. 26.4 % (36.0-48.0); HEMOGLOBIN. 7.6 g/dL (12.0-16.0); LYMPHOCYTES % 11.9 % (20.0-50.0); MEAN CORPUSCULAR HEMOGLOBIN 23.5 pg (28.0-32.0); MEAN CORPUSCULAR VOLUME 81.7 fL (81.0-99.0); MEAN PLATELET VOLUME 9.1 fl (7.4-10.4); MONOCYTES % 6.7 % (2.0-8.0); NEUTROPHILS % 80.7 % (40.0-76.0); PLATELET 291 x1000/uL (130-400); RED BLOOD CELL COUNT 3.23 mill/uL (4.2-5.4); RED CELL DISTRIBUTION WIDTH 21.5 % (11.6-14.6)
[2017-07-08 19:22] LABS: CHLORIDE 108 mEq/L (98-107)
[2017-07-08 19:23] LABS: INR 1.5; PARTIAL THROMBOPLASTIN TIME 34.7 sec (23.4-31.0); PROTHROMBIN TIME 15.3 sec (9.4-11.6)
[2017-07-08] MEDS ORDERED: DEXTROSE 50% WATER 50ML SYRINGE IV NR (20:30)
[2017-07-08] MEDS ORDERED: SODIUM POLYSTYRENE SULFONATE 15 G/60 ML BOT PO NR (20:30)
[2017-07-08] MEDS ORDERED: CALCIUM CHLORIDE 1GM/10ML SYR IV ONE (20:30)
[2017-07-08 20:45] LABS: BG BASE EXCESS -11.3 mmol/L (-2.0-2.0); BG CARBOXYHEMOGLOBIN 0.3 % (0.5-1.5); BG DEOXYHEMOGLOBIN 1.2 % (0.0-5.0); BG FRACTION INSPIRED OXYGEN 75; BG HCO3 ACT 13.9 mmol/L (22.0-26.0); BG METHEMOGLOBIN 0.4 % (0.0-1.5); BG OXYGEN SATURATION 98.8 % (92.0-98.5); BG OXYHEMOGLOBIN 98.1 % (94.0-97.0); BG PCO2 28.8 mmHg (35.0-45.0); BG PH 7.302 (7.350-7.450); BG PO2 163.1 mmHg (75.0-100.0); BG SAMPLE SITE A-LINE; BG TIDAL VOLUME(mL) 500 mL; BG TOTAL HEMOGLOBIN 8.8 g/dL (12.0-18.0); BG VENT MODE VENT - A/C; BG VENT RATE 18 set
[2017-07-08] MEDS ORDERED: CALCIUM CHLORIDE 1000 MG in DEXTROSE 5% WATER 100 ML IV NR (20:45)
[2017-07-08] MEDS ORDERED: INSULIN REGULAR (HUMULIN R) UD 100 UNITS/ML SYR IV NR (21:00)
[2017-07-08] MEDS: INSULIN GLARGINE UD 100 UNITS/ML SYR SUBCUT SCH (22:12)
[2017-07-09] VITALS: BP 37/10
[2017-07-09 00:03] VITALS: BP 30/9
[2017-07-09 00:15] VITALS: BP 73/21
[2017-07-09 00:16] VITALS: BP_SYST 113; BP_SYST 66; BP_DIAS 18; BP_DIAS 46
[2017-07-09] MEDS ORDERED: DEXTROSE 50% WATER 50ML SYRINGE IV SCH (00:45)
[2017-07-09] MEDS ORDERED: SODIUM BICARBONATE 8.4% 1 MEQ/ML 50ML SYR IV SCH (00:45)
[2017-07-09] MEDS ORDERED: SODIUM POLYSTYRENE SULFONATE 15 G/60 ML BOT PO SCH (00:45)
[2017-07-09] MEDS ORDERED: CALCIUM CHLORIDE 1GM/10ML SYR IV SCH (00:45)
[2017-07-09] MEDS ORDERED: INSULIN REGULAR (HUMULIN R) 300UNITS/3ML IV SCH (00:45)
[2017-07-09] MEDS ORDERED: FUROSEMIDE 40MG/4ML VIAL IVP SCH (09:00)
== END 2017-07-09 00:47 | disposition expired | DRG 720 ==
LOC: ER 19:13 → EDBEDREQTM 21:50 → EDBEDREQSVC 21:50 → EDBEDREQ 21:50 → 3WST 22:10 → EDBEDREQTM 22:30 → EDBEDREQ 22:30 → ENRESERV 22:35 → CVICU 06-27 17:04
PROVIDERS: ADMIT Internal Medicine Nephrology; ATTEND Internal Medicine Nephrology
PROC: 5A09457 Assistance with Respiratory Ventilation, 24-96 Consecutive Hours, Continuous Positive Airway Pressure (ICD-10-PCS; 2017-06-26)
PROC: 5A1955Z Respiratory Ventilation, Greater than 96 Consecutive Hours (ICD-10-PCS; principal; 2017-06-27)
PROC: 0BH17EZ Insertion of Endotracheal Airway into Trachea, Via Natural or Artificial Opening (ICD-10-PCS; 2017-06-27)
PROC: 02HV33Z Insertion of Infusion Device into Superior Vena Cava, Percutaneous Approach (ICD-10-PCS; 2017-06-28)
PROC: B548ZZA Ultrasonography of Superior Vena Cava, Guidance (ICD-10-PCS; 2017-06-28)
PROC: 5A09457 Assistance with Respiratory Ventilation, 24-96 Consecutive Hours, Continuous Positive Airway Pressure (ICD-10-PCS; 2017-07-04)
PROC: 5A1935Z Respiratory Ventilation, Less than 24 Consecutive Hours (ICD-10-PCS; 2017-07-08)
DX: A41.9 Sepsis, unspecified organism (principal); N17.0 Acute kidney failure with tubular necrosis; E43 Unspecified severe protein-calorie malnutrition; J69.0 Pneumonitis due to inhalation of food and vomit; J96.01 Acute respiratory failure with hypoxia; J96.02 Acute respiratory failure with hypercapnia; G93.41 Metabolic encephalopathy; I50.31 Acute diastolic (congestive) heart failure; D68.9 Coagulation defect, unspecified; E11.22 Type 2 diabetes mellitus with diabetic chronic kidney disease; E87.0 Hyperosmolality and hypernatremia; E87.4 Mixed disorder of acid-base balance; J44.0 Chronic obstructive pulmonary disease with (acute) lower respiratory infection; E11.65 Type 2 diabetes mellitus with hyperglycemia; E66.09 Other obesity due to excess calories; J44.1 Chronic obstructive pulmonary disease with (acute) exacerbation; N18.9 Chronic kidney disease, unspecified; B35.9 Dermatophytosis, unspecified; D64.9 Anemia, unspecified; D72.823 Leukemoid reaction; E87.5 Hyperkalemia; F10.21 Alcohol dependence, in remission; I08.0 Rheumatic disorders of both mitral and aortic valves; I13.0 Hypertensive heart and chronic kidney disease with heart failure and stage 1 through stage 4 chronic kidney disease, or unspecified chronic kidney disease; I25.10 Atherosclerotic heart disease of native coronary artery without angina pectoris; I48.2 Chronic atrial fibrillation; I48.92 Unspecified atrial flutter; I49.1 Atrial premature depolarization; F32.9 Major depressive disorder, single episode, unspecified; F41.9 Anxiety disorder, unspecified; I49.3 Ventricular premature depolarization; I95.9 Hypotension, unspecified; N39.0 Urinary tract infection, site not specified; T38.0X5A Adverse effect of glucocorticoids and synthetic analogues, initial encounter; Z68.37 Body mass index [BMI] 37.0-37.9, adult; Z78.1 Physical restraint status; Z79.4 Long term (current) use of insulin; Z79.82 Long term (current) use of aspirin; Z80.9 Family history of malignant neoplasm, unspecified; Z82.49 Family history of ischemic heart disease and other diseases of the circulatory system; Z87.891 Personal history of nicotine dependence; Z90.710 Acquired absence of both cervix and uterus; Z95.5 Presence of coronary angioplasty implant and graft; Z88.0 Allergy status to penicillin; Z88.6 Allergy status to analgesic agent; F19.10 Other psychoactive substance abuse, uncomplicated
CPT/HCPCS: 31500; 36415; 36569; 36600; 71045; 71250; 74176; 76770; 76937; 78580; 80048; 80202; 80305; 81001; 82140; 82375; 82553; 82805; 82962; 83036; 83605; 83735; 83880; 84100; 84145; 84443; 84478; 84484; 85027; 87070; 87804; 92610; 92950; 93005; 93306; 93970; 94002; 94003; 94640; 94660; 96365; 96375; 96376; 97163; 97166; 99291; A6261; C1725; C9113; J0330; J1120; J1160; J1170; J1200; J1650; J1815; J1940; J1956; J2060; J2270; J2310; J2370; J2405; J2704; J2920; J2930; J3010; J3370; J3490; J7030; J7040; J7050; J7060; J7611; J7620; J7626; J8597; Q9963; A4315